=== PATIENT | female | born 1995 | race Caucasian/White ===

== ENCOUNTER 2024-09-20 06:49 | Day surgery (SDC) | payer OTHER ==
[2024-09-19 12:04] VITALS: BMI 36.6
[2024-09-20] MEDS ORDERED: KETOROLAC TROMETHAMINE 30 MG/1 ML VIAL ONE (07:33)
[2024-09-20] MEDS ORDERED: LIDOCAINE HCL/PF 2% SDV 5ML VIAL ONE (07:33)
[2024-09-20] MEDS ORDERED: ONDANSETRON 4 MG/2 ML VIAL ONE (07:33)
[2024-09-20] MEDS ORDERED: GLYCOPYRROLATE 0.2 MG/1 ML VIAL ONE (07:33)
[2024-09-20] MEDS ORDERED: DEXAMETHASONE SOD PHOSPHATE 4 MG/1 ML VIAL ONE (07:33)
[2024-09-20] MEDS ORDERED: ceFAZolin SODIUM 1 GM VIAL ONE (07:33)
[2024-09-20] MEDS ORDERED: PROPOFOL 20 ML ONE ×2 (07:35→09:02)
[2024-09-20] MEDS ORDERED: SUCCINYLCHOLINE CHLORIDE 200 MG/10 ML SYRINGE ONE (07:37)
[2024-09-20] MEDS ORDERED: ROCURONIUM BROMIDE 50 MG/5 ML SYRINGE ONE (07:38)
[2024-09-20] MEDS ORDERED: MIDAZOLAM HCL 2 MG/2 ML SINGLE DOSE VIAL ONE (07:38)
[2024-09-20] MEDS ORDERED: ACETAMINOPHEN INJECTION 100 ML ONE (08:16)
[2024-09-20] MEDS: ceFAZolin SODIUM 1 GM VIAL IVPB ONE (08:25)
[2024-09-20] MEDS: BUPIVACAINE HCL/PF 0.25% (2.5MG/ML) 10 ML VIAL IJ ONE (09:01)
[2024-09-20] MEDS ORDERED: oxyCODONE HCL 5 MG TABLET PO PRN (09:02)
[2024-09-20] MEDS ORDERED: BUPIVACAINE HCL/PF 0.25% (2.5MG/ML) 10 ML VIAL ONE (09:03)
[2024-09-20] MEDS ORDERED: SUGAMMADEX SODIUM 200 MG/2 ML VIAL ONE (09:15)
[2024-09-20] MEDS ORDERED: LACTATED RINGERS SOLUTION 1,000 ML IV SCH (09:15)
[2024-09-20 11:05] VITALS: RESP 16
[2024-09-20 12:11] VITALS: BP 110/60; PULSE 55; TEMP 97.1
== END 2024-09-20 12:45 | disposition home or self-care (01) ==
LOC: JASU-SURG 06:49
PROVIDERS: ATTEND Obstetrics & Gynecology Obstetrics
PROC: 0UT74ZZ Resection of Bilateral Fallopian Tubes, Percutaneous Endoscopic Approach (ICD-10-PCS; principal; 2024-09-20 08:00)
DX: Z30.2 Encounter for sterilization (principal)
CPT/HCPCS: 81025; 86850; 86900; 86901; 88300-TC; 88305-TC; 94760; J0131